=== PATIENT | female | born 1975 | race African-American/Black ===

== ENCOUNTER 2019-11-22 22:30 | Emergency (ER) | payer MEDICAID, OTHER ==
[~2019-11-22] VITALS: Ht 172.7 cm; Wt 90.7 kg
[2019-11-23 01:06] LABS: Basophils # (auto) 0.1 10 ^3/uL (0-0.2); Eosinophils # (auto) 0 10 ^3/uL (0-0.8); Hemoglobin 8.3 g/dL (12.2-16.2); Mean Corpuscular Hgb Conc. 28.8 g/dL (32.0-36.0); Neutrophils # (auto) 17.2 10 ^3/uL (1.6-8.6)
[2019-11-23 01:08] LABS: Basophils % (auto) 0.4 % (0.0-2.0); Eosinophils % (auto) 0.1 % (0.0-7.0); Hematocrit 28.8 % (36.0-46.0); Lymphocytes # (auto) 0.8 10 ^3/uL (0.4-5.4); Lymphocytes % (auto) 4.4 % (10.0-50.0); Mean Corpuscular Volume 58.8 fL (80.0-100.0); Monocytes # (auto) 1.1 10 ^3/uL (0-1.3); Monocytes % (auto) 5.7 % (0.0-12.0); Neutrophils % (auto) 89.4 % (37.0-80.0); Platelet Count (auto) 213 10^3/uL (140-450); Red Cell Distribution Width 19.8 % (11.8-14.3); White Blood Cell 19.2 10^3/uL (4.4-10.8)
[2019-11-23 01:24] LABS: Anion Gap 3 (5-15); Blood Urea Nitrogen 15 mg/dL (7-18); Calcium 8.8 mg/dL (8.5-10.1); Carbon Dioxide 27 mmol/L (21-32); Chloride 106 mmol/L (98-107); Glucose 219 mg/dL (74-106); Magnesium 2.3 mg/dL (1.6-2.6); Potassium 4.3 mmol/L (3.5-5.1); Sodium 136 mmol/L (136-145)
[2019-11-23 01:27] LABS: Alanine Aminotransferase 19 U/L (13-56); Aspartate Aminotransferase 15 U/L (15-37); BUN/Creatinine Ratio 17.6; GFR African American 93 mL/min; GFR Non-African American 77 mL/min; Salicylate < 1.7 mg/dL (2.8-20.0)
[2019-11-23 01:29] LABS: Alkaline Phosphatase 65 U/L (45-117); Bilirubin, Total 0.2 mg/dL (0.2-1.0); Blood Alcohol < 3.0 mg/dL (0-5); Total Protein 8.7 g/dL (6.4-8.2)
[2019-11-23 01:39] LABS: Acetaminophen < 2.0 ug/mL (10-30)
[2019-11-23 05:11] LABS: Alcohol, Urine < 3.0 mg/dL (0-10); Amphetamine Screen, Urine NEGATIVE (NEGATIVE); Barbiturate Scree,Urine NEGATIVE (NEGATIVE); Benzodiazephine Screen, Urine NEGATIVE (NEGATIVE); Cannabinoid Screen, Urine NEGATIVE (NEGATIVE); Cocaine Screen, Urine NEGATIVE (NEGATIVE); Opiate Scree,Urine POSITIVE (NEGATIVE); Phencyclidine Screen, Urine NEGATIVE (NEGATIVE)
[2019-11-23 05:17] LABS: Urine Bacteria NONE SEEN /hpf (None Seen); Urine Blood Negative /uL (Negative); Urine Mucus FEW (None Seen); Urine Specific Gravity 1.025 (1.001-1.035); Urine WBC 8 /hpf (0 - 5)
[2019-11-23 06:00] VITALS: BP 144/87
== END 2019-11-23 06:17 | disposition home or self-care (01) ==
LOC: ER 22:30 → EDBD 22:30 → ER 11-23 06:17
DX: T40.601A Poisoning by unspecified narcotics, accidental (unintentional), initial encounter (principal); T39.1X1A Poisoning by 4-Aminophenol derivatives, accidental (unintentional), initial encounter; R41.82 Altered mental status, unspecified; E11.9 Type 2 diabetes mellitus without complications; Y92.9 Unspecified place or not applicable
CPT/HCPCS: 36415; 80053; 80307; 80320; 80329; 81001; 83735; 85025